=== PATIENT | male | born 1965 | race Caucasian/White ===

== ENCOUNTER 2025-06-26 06:23 | Day surgery (SDC) | payer OTHER, SELFPAY ==
[2025-06-26] VITALS (15 sets, daily range): BP systolic 119–145; BP diastolic 65–103; BMI 23.0
[2025-06-26] MEDS: LOW STRENGTH ASPIRIN 81 MG PO (06:58)
[2025-06-26] MEDS: NSS 206 ML IV (07:00)
[2025-06-26 07:32] LABS: Blood Urea Nitrogen 12 mg/dl (9-20); Calcium 9.8 mg/dl (8.4-10.2); Carbon Dioxide 27 mmol/L (22-30); Chloride 107 mmol/L (98-107); Estimated Creatinine Clearance 79 ml/min; Glucose 100 mg/dl (70-99); Potassium 4.2 mmol/L (3.5-5.1); Sodium 138 mmol/L (135-145); eGFR > 60.00
[2025-06-26 09:08] LABS: ACT-LR - POC 387 Seconds (116-155)
--- NOTE | 2025-06-26 09:17 | ITS.CL.CATH ---
[employer] Representative - Catheterization
Cardiac Catheterization
Procedure Report:
CARDIAC CATHETERIZATION REPORT
Date of Procedure: 06/26/2025
Referring: Chirag Avila D.O.
INDICATION: Known coronary artery disease, new chest pain.
PROCEDURE:
1. Left heart catheterization.
2. Coronary angiography.
3. Successful IFR of the proximal LAD.
4. Successful IFR of the mid circumflex.
A total of 39 minutes of procedural/moderate sedation was utilized. An independent medical instrument technician was present to assist with and help manage the patient's level of consciousness and physiologic status.
ACCESS:
1. 6 Cymraes right radial artery using a modified Seldinger technique.
CATHETERS:
1. 5 Cymraes JR4.
2. 5 Cymraes JL 3.5.
3. 6 Cymraes EBU 3.5 guiding catheter.
HEMODYNAMIC DATA
Weight (kg): 68.5
AO (s/d/x, mmHg): 120/70/87
LV (s/x mmHg): 120/12
AV gradient (x, mmHg): None.
LEFT VENTRICULOGRAPHY: Not performed.
CORONARY ANGIOGRAPHY
Dominance: Right.
Left Main: Large size, bifurcating vessel. There is no coronary artery disease.
LAD: Normal size vessel giving rise to 2 diagonals. The first diagonal is a large vessel supplying the majority the anterolateral wall. There is a densely calcified, 60% lesion in the proximal vessel immediately proximal to the origin of
the first diagonal. There are luminal irregularities in the mid vessel.
Ramus: Congenitally absent.
Circumflex: Normal size, nondominant vessel giving rise to 1 obtuse marginal which migrates towards the apex of the heart. There is a 40-50% lesion in the midportion of OM1.
RCA: Large size, dominant vessel. Patent stents are visible in the proximal and mid RCA. The RCA is chronically totally occluded in its distal portion, immediately after the mid stent at the crux. The RPDA and RPL are patent and supplied
by collaterals from the left coronary tree.
INTERVENTION(S)
1. Successful IFR of the 60% densely calcified, proximal LAD lesion, demonstrating nonocclusive disease (IFR = 0.93).
2. Successful IFR of the 40-50% mid OM1 lesion, demonstrating nonocclusive disease (IFR = 1.0).
Narrative:
The decision was made to perform physiologic testing. The diagnostic catheter was removed over a wire and exchanged for a(n) 6 Cymraes EBU 3.5 guiding catheter. The guiding catheter was advanced into the ascending aorta and seated in the left main
coronary artery. Additional heparin was given to obtain an ACT greater than 250 seconds. An iFR wire was zeroed outside of the body, then inserted into the guiding sheath. The wire was advanced and the transducer was normalized just outside of the
guiding catheter tip. The wire was advanced into the distal LAD. Three iFR measurements were taken. The lesion was determined to be nonocclusive (0.93).
We then turned our attention to the 50% lesion in the mid OM1. The iFR wire was renormalized just outside of the guiding catheter tip. The wire was advanced into the distal OM1. Three iFR measurements were taken. The lesion was determined to be
nonocclusive (1.0).
The IFR wire was withdrawn into the proximal coronary artery and final angiography was performed demonstrating stable coronary artery disease with no evidence of wire perforation.
Closure Device: Vascular band.
Radiation (mGy): 493
DAP (cm2.Gy): 24.8
Fluoroscopy time (minutes): 6.7
CONCLUSIONS
1. Right dominant circulation with prior PCI of the proximal and mid RCA, chronic total occlusion of the distal RCA at the crux with a patent RPDA and RPL supplied by collaterals from the left system, a nonocclusive, densely calcified 60% proximal
LAD lesion (iFR = 0.93) and a nonocclusive 40-50% lesion in the mid OM1 (IFR = 1.0).
2. Normal filling pressures (LVEDP = 12 mmHg at 68.5 kg).
3. Hyperkalemia on outpatient labs, corrected on inpatient redraw.
RECOMMENDATIONS:
1. Expectant management after cardiac catheterization via right radial approach.
2. Limited weight bearing on the right wrist for one week.
3. Aggressive secondary prevention with aspirin, high-dose, high potency statin.
4. GDMT/OMT as hemodynamics will tolerate. We will discontinue lisinopril and start amlodipine 2.5 mg daily given the hyperkalemia.
5. Goal LDL <55.
6. Stable for outpatient follow-up.
Copy to: Chirag Avila D.O., Pawan Reyes, SILK SCREEN PRINTER-C
Chirag Avila DO, FACC, FACP
== END 2025-06-26 13:02 | disposition home or self-care (01) ==
LOC: CATH 06:23
PROVIDERS: ATTENDING PHYSICIAN Internal Medicine Cardiovascular Disease
DX: I25.10 Atherosclerotic heart disease of native coronary artery without angina pectoris (principal); R07.9 Chest pain, unspecified; I10 Essential (primary) hypertension; E87.5 Hyperkalemia; I25.82 Chronic total occlusion of coronary artery; I25.84 Coronary atherosclerosis due to calcified coronary lesion; R73.03 Prediabetes; Z79.82 Long term (current) use of aspirin; Z79.899 Other long term (current) drug therapy; E78.00 Pure hypercholesterolemia, unspecified
CPT/HCPCS: 99152; 99153; 93799 ×2; 80048; 93458; C1769; C1894; Q9967